=== PATIENT | female | born 1955 | race Caucasian/White ===

== ENCOUNTER → 2016-11-26 | Outpatient (CLI) | payer MEDICARE, OTHER ==
[~2016-11-26] MED LIST: ASPIR 8181 MG PO; BUSPIRONE HCL7.5 MG PO; LEVEMIR FL100 UNIT/1 SC; LEVEMIR FL100 UNIT/1 SQ; LIORESAL TAB 1010 MG PO; NEURONTIN 400400 MG PO; NEURONTIN800 MG PO; NOVOLOG FL100 UNIT/1 SC; NOVOLOG FL100 UNIT/1 SQ; ZESTRIL10 MG PO; ZOLOFT100 MG PO
== END ==
LOC: KOH-I 16:25
DX: J44.9 Chronic obstructive pulmonary disease, unspecified (principal)
CPT/HCPCS: 71020

== ENCOUNTER → 2017-02-11 | Outpatient (CLI) | payer MEDICARE, OTHER ==
[2017-02-11 14:26] LABS: BUN/CREATININE RATIO 16 (0-10)
== END ==
LOC: LAB 13:19
PROVIDERS: Internal Medicine Cardiovascular Disease
DX: I25.10 Atherosclerotic heart disease of native coronary artery without angina pectoris (principal); I10 Essential (primary) hypertension
CPT/HCPCS: 36415; 80053; 80061; 84443